=== PATIENT | female | born 2000 | race Caucasian/White ===

== ENCOUNTER 2021-03-10 05:10 | Emergency (ER) | payer OTHER ==
[~2021-03-10] VITALS: Ht 154.9 cm; Wt 72.6 kg
[2021-03-10 05:16] VITALS: BP 123/73
--- NOTE | 2021-03-10 05:16 | NUR ---
to bed ambulatory
--- NOTE | 2021-03-10 05:30 | NUR ---
RECEIVED IN BED 3 WITH C/O ABSCESS RIGHT AXILLA WHICH STARTED 3 DAYS AGO. REDNESS NOTED TO RIGHT AXILLA
[2021-03-10] MEDS: LIDOCAINE/EPI 1% 1:100000 20 ML VIAL INJ ONE (06:27)
[2021-03-10] MEDS ORDERED: NAPR-54 PO (07:03)
[2021-03-10] MEDS ORDERED: SULF-59 PO (07:03)
[2021-03-10] MEDS ORDERED: ACET-8386 PO (07:03)
[2021-03-10 07:15] VITALS: BP 123/73
--- NOTE | 2021-03-10 07:15 | NUR ---
Patient discharged with v/s stable. Written and verbal after care instructions given and explained. Patient alert, oriented and verbalized understanding of instructions. Ambulatory with steady gait. All questions addressed prior to discharge. ID band removed. Patient advised to follow up with PMD. Rx of BACTRIM, HYDROCODONE, NAPROSYN given. Patient educated on indication of medication including possible reaction and side effects. Opportunity to ask questions provided and answered.
== END 2021-03-10 07:15 | disposition home or self-care (01) ==
LOC: MED 05:10
DX: L02.411 Cutaneous abscess of right axilla (principal); Z79.899 Other long term (current) drug therapy
CPT/HCPCS: 99284; J2001

== ENCOUNTER 2021-03-13 11:42 | Emergency (ER) | payer OTHER ==
[~2021-03-13] VITALS: Ht 154.9 cm; Wt 74.4 kg
[~2021-03-13 11:42] MED LIST: ACET-8386 PO; NAPR-54 PO; SULF-59 PO
[2021-03-13 11:53] VITALS: BP 113/66
--- NOTE | 2021-03-13 12:04 | NUR ---
20/F PRESENTS TO ED WITH C/O RIGHT UNDER ARM PAIN. PATIENT STATES SHE WAS SEEN HERE 3 DAYS AGO AND TOLD SHE HAD TWO ABSCESSES DEVELOPING BUT WERE NOT READY TO BE DRAINED AND D/C HOME WITH RX OF ANTIBIOTICS AND PAIN MEDS. PATIENT STATES TODAY SHE WOKE UP WITH 10/10 SHARP UNDER ARM PAIN AND STATES THE LUMPS HAVE GOTTEN LARGER. REPORTS TAKING NAPROSYN AND NORCO AT HOME FOR PAIN WITH SOME RELIEF. DENIES FEVER, CHILLS, SOB, N/V/D.
[2021-03-13] MEDS ORDERED: LIDOCAINE MPF 1% 10 MG/ML VIAL INJ ONE (12:05)
[2021-03-13 12:46] VITALS: BP 113/66
--- NOTE | 2021-03-13 12:46 | NUR ---
Patient discharged with v/s stable. Written and verbal after care instructions given and explained. Patient verbalized understanding. Ambulatory with steady gait. All questions addressed prior to discharge. Advised to follow up with PMD.
== END 2021-03-13 12:46 | disposition home or self-care (01) ==
LOC: MED 11:42
DX: L02.413 Cutaneous abscess of right upper limb (principal); Z79.899 Other long term (current) drug therapy
CPT/HCPCS: 10060; 99283; J2001

== ENCOUNTER 2021-03-17 12:29 | Emergency (ER) | payer OTHER ==
[~2021-03-17] VITALS: Ht 154.9 cm; Wt 73.5 kg
[2021-03-17 12:35] VITALS: BP 137/74
--- NOTE | 2021-03-17 12:37 | NUR ---
PT AMBULATED TO BED 9
--- NOTE | 2021-03-17 12:49 | NUR ---
20 Y/O FEMALE BIB SELF FOR ABSCESS RECHECK. PT HAD RIGHT UNDERARM ABSCESS DRAINED AND PACKED ON 03/13/21 AND WAS TOLD TO RETURN TODAY TO HAVE GAUZE REMOVED. DENIES ANY NEW PAIN, FEVER, CHILLS. PT REPORTS CONTINUATION OF ANTIBIOTICS. PT A/O X4 WITH EVEN AND UNLABORED RESPIRATIONS. PMH:DENIES ALLERGIES: DENIES
--- NOTE | 2021-03-17 12:50 | NUR ---
CRISPIN [facility]RERO AT BEDSIDE EVALUATING PT
--- NOTE | 2021-03-17 13:05 | NUR ---
Patient discharged with v/s stable. Written and verbal after care instructions ABOUT WOUND CARE given and explained. Patient verbalized understanding. Ambulatory with steady gait. All questions addressed prior to discharge. Advised to follow up with PMD.
--- NOTE | 2021-03-17 13:20 | NUR ---
PATIENT'S OPEN WOUND WAS BANDAGED WITH NONADHERENT DRESSING.
== END 2021-03-17 13:04 | disposition home or self-care (01) ==
LOC: MED 12:29
DX: L02.411 Cutaneous abscess of right axilla (principal); Z79.899 Other long term (current) drug therapy
CPT/HCPCS: 99281

== ENCOUNTER 2021-07-12 10:04 | Emergency (ER) | payer OTHER ==
[~2021-07-12] VITALS: Ht 154.9 cm; Wt 75.7 kg
[2021-07-12 10:08] VITALS: BP 120/70
--- NOTE | 2021-07-12 10:11 | NUR ---
Patient ambulated with steady gait to bed 3.
[2021-07-12] MEDS ORDERED: KETOROLAC 60 MG/2 ML VIAL IM ONE (10:15)
--- NOTE | 2021-07-12 10:26 | NUR ---
PT C/O RIGHT WRIST PAIN X2 DAYS S/P FALLING WHILE SKATEBOARDING.
[2021-07-12] MEDS ORDERED: IBUP-2213 PO (10:56)
[2021-07-12 11:04] VITALS: BP 110/64
== END 2021-07-12 11:04 | disposition home or self-care (01) ==
LOC: MED 10:04
DX: S63.501A Unspecified sprain of right wrist, initial encounter (principal); Z79.899 Other long term (current) drug therapy; W19.XXXA Unspecified fall, initial encounter; Y93.89 Activity, other specified; Y92.89 Other specified places as the place of occurrence of the external cause; Y99.8 Other external cause status
CPT/HCPCS: 73110; 96372; 99283; J1885

== ENCOUNTER 2022-05-10 12:19 | Emergency (ER) | payer OTHER ==
[~2022-05-10] VITALS: Ht 154.9 cm; Wt 73.0 kg
[~2022-05-10 12:19] MED LIST changes: +IBUP-2213 PO
[2022-05-10 12:22] VITALS: BP 115/78
[2022-05-10] MEDS ORDERED: ONDANSETRON 4 MG ODT PO ONE (12:50)
[2022-05-10 13:26] LABS: APPEARANCE,URINE HAZY (CLEAR); BILIRUBIN,URINE NEGATIVE (NEGATIVE); BLOOD, URINE 2+ (NEGATIVE); COLOR,URINE YELLOW (YELLOW); LEUKOCYTE ESTERASE ,URINE TRACE (NEGATIVE); NITRITE, URINE NEGATIVE (NEGATIVE); PH,URINE 6.5 (5.0-9.0); UGLUCOSE NEGATIVE (NEGATIVE)
[2022-05-10 13:38] LABS: RBC,URINE 0-5 /HPF (0-5)
[2022-05-10] MEDS ORDERED: ONDA-188 PO (13:52)
[2022-05-10] MEDS ORDERED: NITR100C7 PO (13:52)
[2022-05-10] MEDS ORDERED: TAM75 PO (13:55)
--- NOTE | 2022-05-10 14:08 | NUR ---
Patient discharged with v/s stable. Written and verbal after care instructions given and explained for UTI, Diarrhea, Influenza, Vomiting. Work note given. Patient alert, oriented and verbalized understanding of instructions. Ambulatory with steady gait. All questions addressed prior to discharge. ID band removed. Patient advised to follow up with PMD. Rx of Macobid, Zofran ODT, Tamiflu given. Patient educated on indication of medication including possible reaction and side effects. Opportunity to ask questions provided and answered. Copies of Flu/COVID, UA given to patient.
== END 2022-05-10 14:08 | disposition home or self-care (01) ==
LOC: MED 12:19
DX: J10.1 Influenza due to other identified influenza virus with other respiratory manifestations (principal); N39.0 Urinary tract infection, site not specified; Z20.822 Contact with and (suspected) exposure to COVID-19; Z79.899 Other long term (current) drug therapy; Z79.2 Long term (current) use of antibiotics; Z79.1 Long term (current) use of non-steroidal anti-inflammatories (NSAID); Z79.891 Long term (current) use of opiate analgesic
CPT/HCPCS: 81001; 81025; 87086; 87426; 87804; 99283; Q0162